=== PATIENT | male | born 1955 | race Caucasian/White ===

== ENCOUNTER 2018-06-11 11:32 | Day surgery (SDC) | payer OTHER ==
[2018-06-11] MEDS ORDERED: LIDOCAINE 2% (SDV) 5 ML INJ (13:07)
[2018-06-11] MEDS ORDERED: PROPOFOL 40 ML (13:07)
[2018-06-11] MEDS ORDERED: ONDANSETRON 4 MG INJ IV (13:30)
[2018-06-11] MEDS ORDERED: HYDROmorphONE 1 MG/5 ML IV SYRINGE IV (13:30)
[2018-06-11] MEDS ORDERED: PROPOFOL 20 ML (13:56)
== END 2018-06-11 15:15 | disposition home or self-care (01) ==
LOC: GIL 11:32
DX: Z12.11 Encounter for screening for malignant neoplasm of colon (principal); D12.8 Benign neoplasm of rectum; K64.8 Other hemorrhoids; I10 Essential (primary) hypertension
CPT/HCPCS: 45380; 88305